=== PATIENT | male | born 1975 ===

== ENCOUNTER 2017-03-07 06:46 | Day surgery (SDC) | payer OTHER ==
[2017-03-04 12:00] VITALS: BMI 24.3
[2017-03-07] MEDS ORDERED: Lidocaine 2% Inj (20ml) ONE (07:15)
[2017-03-07] MEDS ORDERED: Iodixanol 320 MG/ML 200 ML BOTTLE IV ONE (07:16)
[2017-03-07] MEDS ORDERED: Midazolam 2 MG/2 ML VIAL ONE ×2 (07:16→09:12)
[2017-03-07] MEDS ORDERED: HEPARIN SODIUM/NS 2,000 ML IV ONE (07:17)
[2017-03-07 07:37] LABS: BASO # 0.02 [, K/mm3] (0.0-2.0); BASO % 0.3 % (0.0-3.0); EOS # 0.3 (0.0-0.7); EOS % 3.9 % (1.5-5.0); GRAN # 4.66 (1.4-6.5); GRAN % 61.2 % (50.0-68.0); HEMOGLOBIN 15.1 g/dL (14.0-18.0); LYMPH # 2.1 (1.2-3.4); MEAN CELL VOLUME 88.9 fl (80.0-105.0); MEAN CORPUSCULAR HEMOGLOBIN 30.4 pg (25.0-35.0); MEAN CORPUSCULAR HGB CONC 34.2 g/dl (31.0-37.0); MONO # 0.5 (0.1-0.6); MONO % 6.6 % (1.0-6.0); RBC 4.97 [, 10^6/uL] (3.5-6.1); RED CELL DISTRIBUTION WIDTH 12.4 % (11.5-14.5); WHITE BLOOD COUNT 7.6 [, 10^3/ul] (4.5-11.0)
[2017-03-07 07:50] LABS: INR 0.94 (0.93-1.08); PARTIAL THROMBOPLASTIN TIME 27.2 Seconds (25.1-36.5); PROTHROMBIN TIME 10.8 SECONDS (9.4-12.5)
[2017-03-07 07:57] LABS: BLOOD UREA NITROGEN 14 mg/dL (7-21); CALCIUM 9.6 mg/dL (8.4-10.5); GFR AFRICAN-AMERICAN > 60; GFR NON-AFRICAN AMERICAN > 60; HDL CHOLESTEROL 56 mg/dL (29-60)
[2017-03-07 08:07] LABS: LDL CHOLESTEROL 96 mg/dL (0-129)
[2017-03-07] MEDS ORDERED: Iohexol 350mgl/ml 50 ML ONE (08:52)
[2017-03-07] MEDS ORDERED: Sodium Chloride 0.9% 1,000 ML IV SCH (09:45)
[2017-03-07 10:20] VITALS: RESP 20; TEMP 97.4
[2017-03-07 15:32] VITALS: BP 116/76; PULSE 73; O2SAT 97
--- NOTE | 2017-03-07 16:44 | CARD ---
APPROVED REPORT EKG Measurement Heart [id number] AK [id number] <Conclusion> Sinus bradycardia with marked sinus arrhythmia Otherwise normal ECG
--- NOTE | 2017-03-08 07:32 | CARDCATH ---
PROCEDURE DATE: 03/07/2017 HISTORY: The patient is a 42-year-old male who presents with exertional dyspnea and chest pain. A stress test revealed ischemic areas in the anterior apical segment as well as a cardiomyopathy. Because of this and his major cardiac risk factor which is nicotine addiction, a cardiac catheterization was recommended. PROCEDURE: Left heart catheterization with coronary arteriography and left ventriculogram with supraaortic valvular injection. The right femoral artery was cannulated with a 6-[place] sheath. There were no complications. I performed moderate sedation which included the presence of an independent trained observer that assisted in monitoring the patient's level of consciousness and physiologic status. After administration of Versed and fentanyl, my intraservice time was 15 minutes. The findings on catheterization revealed a left ventricle that was globally hypokinetic. Estimated ejection fraction was approximately 45%. There was no mitral regurgitation. Supraaortic valvular injection revealed no aortic insufficiency. His coronary anatomy revealed a right dominant circulation. His cardiac silhouette was very vertical. The RCA was unremarkable. The left main artery was unremarkable. The LAD and diagonal vessels revealed intimal irregularities with the midportion of the LAD revealing a long 30% to 40% stenoses. The circumflex and obtuse marginal branches were free of significant disease. SUMMARY: 1. The procedure revealed a mild dilated cardiomyopathy. 2. No aortic insufficiency. 3. Nonobstructive CAD of the LAD. X-ray consistent with emphysema. Given these findings, the patient's symptoms cannot be explained by ischemic cardiac disease. We will need to be evaluated for significant lung disease given his history of heavy smoking. The patient will need a cardiac risk reduction program. We will add BRUCE inhibitor and possible beta blockers to his regimen. Followup instructions have been given to the patient in detail. Pineda Antunez MD
== END 2017-03-07 16:00 | disposition home or self-care (01) ==
LOC: CATH 06:46
PROVIDERS: ATTEND Internal Medicine Cardiovascular Disease
DX: I25.10 Atherosclerotic heart disease of native coronary artery without angina pectoris (principal); I42.0 Dilated cardiomyopathy; J43.9 Emphysema, unspecified; Z87.891 Personal history of nicotine dependence
CPT/HCPCS: 36415; 80048; 80061; 85025; 85610; 85730; 86850; 86900; 93005; 93458; 93567; 99152; C1769; C2629; J1644; J2250; J3010; J7030; J7040; Q9967